=== PATIENT | male | born 1930 | race Caucasian/White ===

== ENCOUNTER 2017-07-28 22:00 | Inpatient (IN) | payer OTHER ==
[~2017-07-28] VITALS: Ht 154.9 cm; Wt 76.5 kg
[~2017-07-28 22:00] MED LIST: ASPIR 8181 M1 PO; Calan SR,Covera HS,I PO; DIOVAN HCT 3201 EAC1 PO; Pradaxa PO; SIMVASTATIN20 MG PO; VERAPAMIL ER180 M1 PO
[2017-07-28 22:42] LABS: BASOPHIL (%) 0.2 % (0-1); EOSINOPHIL (%) 0 % (0-5); HEMATOCRIT 40.9 % (38.0-50.0); HEMOGLOBIN 13.3 G/DL (12.5-16.6); IMMATURE GRANULOCYTE (%) 0.4 % (0.0-0.7); LYMPHOCYTE (%) 4.2 % (15-42); LYMPHOCYTE COUNT 0.4 K/uL (1.0-2.8); MCH 26.6 PG (29.0-34.0); MCHC 32.5 G/DL (30.0-36.0); MCV 81.8 FL (86-99); MONOCYTE (%) 2.2 % (3-12); MONOCYTE COUNT 0.2 K/uL (0-0.8); NEUTROPHIL COUNT 8.4 K/uL (1.8-6.4); PLATELET COUNT 127 K/uL (156-360); RBC DIS.WIDTH-CV 17.1 % (11.8-14.6); RBC DIS.WIDTH-SD 50.1 % (39-53); WHITE BLOOD COUNT 9.1 K/uL (4.1-10.2)
[2017-07-28 22:48] LABS: INTER. NORMALIZED RATIO 2.1
[2017-07-28 23:00] LABS: ALBUMIN 3.3 g/dL (3.2-4.8)
[2017-07-28 23:01] LABS: CHLORIDE 106 mEq/L (99-109); POTASSIUM 3.7 mEq/L (3.7-5.4); SODIUM 140 mEq/L (136-147)
[2017-07-28 23:03] LABS: GLUCOSE 174 mg/dL (70-99); TOTAL PROTEIN 7.2 g/dL (6.4-8.3)
[2017-07-28 23:05] LABS: TOTAL BILIRUBIN 2.1 mg/dL (0.0-1.0); TROP-I INTERPRETATION NEGATIVE; TROPONIN-I 0.07 ng/mL (0.0-0.30)
[2017-07-28 23:06] LABS: ALKALINE PHOSPHATASE 66 IU/L (3-129)
[2017-07-28 23:07] LABS: CREATININE 1.7 mg/dL (0.6-1.3); GFR ESTIMATE (CALCULATED) 41 mL/min/ (58.99-99999)
[2017-07-28 23:08] LABS: AST (GOT) 15 IU/L (2-34); UREA NITROGEN (BUN) 38 mg/dL (9-23)
[2017-07-28 23:09] LABS: ALT (GPT) 12 IU/L (3-49)
[2017-07-29] VITALS (16 sets, daily range): BP systolic 91–141; BP diastolic 61–97
[2017-07-29] MEDS ORDERED: LOPRESSOR100 M1 PO ×2 (05:44)
[2017-07-29] MEDS ORDERED: CHLORTHALIDONE25 MG PO (05:48)
[2017-07-29] MEDS ORDERED: COUMADIN5 MG PO (05:48)
[2017-07-29] MEDS ORDERED: DIOVAN80 MG PO (05:49)
[2017-07-29 06:41] LABS: APPEARANCE SL.HAZY ((CLEAR)); BILIRUBIN NEGATIVE; BLOOD NEGATIVE; COLOR AMBER ((YELLOW)); GLUCOSE (STRIP) 50; KETONES NEGATIVE; LEUKOCYTES NEGATIVE; NITRITE NEGATIVE; PROTEIN (STRIP) >=500; SPECIFIC GRAVITY 1.022 (1.000-1.030); UROBILINOGEN 0.2 MG/DL (0.2-1.0)
[2017-07-29 06:58] LABS: EPITHELIAL CELLS 1+ /HPF; MUCUS 1+ /LPF; RED BLOOD CELLS NONE SEEN /HPF (0-5); WHITE BLOOD CELLS 0-5 /HPF (0-5)
[2017-07-29 06:59] LABS: BACTERIA RARE /HPF; UCUL ADDED? NO
[2017-07-29 14:35] LABS: BASOPHIL (%) 0.3 % (0-1); EOSINOPHIL (%) 0.2 % (0-5); HEMATOCRIT 38.3 % (38.0-50.0); HEMOGLOBIN 12.2 G/DL (12.5-16.6); IMMATURE GRANULOCYTE (%) 0.1 % (0.0-0.7); LYMPHOCYTE (%) 14.4 % (15-42); LYMPHOCYTE COUNT 1.5 K/uL (1.0-2.8); MCH 26.7 PG (29.0-34.0); MCHC 31.9 G/DL (30.0-36.0); MCV 83.8 FL (86-99); MONOCYTE (%) 6.4 % (3-12); MONOCYTE COUNT 0.7 K/uL (0-0.8); NEUTROPHIL (%) 78.6 % (45-76); RBC DIS.WIDTH-CV 17.5 % (11.8-14.6); RBC DIS.WIDTH-SD 53.3 % (39-53); RED BLOOD COUNT 4.57 M/uL (4.00-5.50); WHITE BLOOD COUNT 10.2 K/uL (4.1-10.2)
[2017-07-29 14:49] LABS: ALBUMIN 3.1 G/DL (3.2-4.8); ALKALINE PHOSPHATASE 46 IU/L (3-129); ALT (GPT) 10 IU/L (3-49); AST (GOT) 14 IU/L (2-34); CHLORIDE 104 MEQ/L (99-109); CREATININE 1.7 MG/DL (0.6-1.3); GFR ESTIMATE (CALCULATED) 41 mL/min/ (58.99-99999); POTASSIUM 3.5 MEQ/L (3.7-5.4); SODIUM 140 MEQ/L (136-147); TOTAL BILIRUBIN 1.7 MG/DL (0.0-1.0); TOTAL PROTEIN 6.3 G/DL (6.4-8.3); UREA NITROGEN (BUN) 40 mg/dL (9-23)
[2017-07-29 14:54] LABS: GLUCOSE 119 mg/dL (70-99)
[2017-07-29 15:09] LABS: PLAT.SUFFICIENCY DECREASED; PLATELET COUNT 101 K/uL (156-360)
[2017-07-29 23:14] LABS: BASE EXCESS -3.8 mEq/L (-3 to +3); BICARBONATE 19.5 mEq/L (22-26); CARBOXY HGB 2.6 % (0-5); METHEMOGLOBIN 1.3 % (0-1.5); PCO2 30 mm Hg (35-45); PO2 108 mm Hg (80-100); pH 7.42 (7.35-7.45)
[2017-07-29 23:15] LABS: COMMENTS - BLOOD GASES C+; DEVICE NC; O2 FLOW 2 L/MIN; SITE RR
[2017-07-30] VITALS (7 sets, daily range): BP systolic 109–145; BP diastolic 72–95
[2017-07-30 00:54] LABS: TROP-I INTERPRETATION NEGATIVE; TROPONIN-I 0.15 ng/mL (0.0-0.30)
[2017-07-30 09:22] LABS: BASOPHIL (%) 0.4 % (0-1); EOSINOPHIL (%) 0.8 % (0-5); EOSINOPHIL COUNT 0.1 K/uL (0-0.3); HEMATOCRIT 42.3 % (38.0-50.0); HEMOGLOBIN 13.3 G/DL (12.5-16.6); IMMATURE GRANULOCYTE (%) 0.4 % (0.0-0.7); LYMPHOCYTE (%) 25.2 % (15-42); LYMPHOCYTE COUNT 1.9 K/uL (1.0-2.8); MCH 25.9 PG (29.0-34.0); MCHC 31.4 G/DL (30.0-36.0); MCV 82.5 FL (86-99); MONOCYTE (%) 8.9 % (3-12); MONOCYTE COUNT 0.7 K/uL (0-0.8); NEUTROPHIL (%) 64.3 % (45-76); NEUTROPHIL COUNT 4.8 K/uL (1.8-6.4); PLATELET COUNT 119 K/uL (156-360); RBC DIS.WIDTH-CV 17.2 % (11.8-14.6); RBC DIS.WIDTH-SD 51.9 % (39-53); RED BLOOD COUNT 5.13 M/uL (4.00-5.50); WHITE BLOOD COUNT 7.5 K/uL (4.1-10.2)
[2017-07-30 09:33] LABS: INTER. NORMALIZED RATIO 1.7
[2017-07-30 09:45] LABS: CHLORIDE 103 MEQ/L (99-109); GFR ESTIMATE (CALCULATED) 34 mL/min/ (58.99-99999); GLUCOSE 113 mg/dL (70-99); SODIUM 138 MEQ/L (136-147); UREA NITROGEN (BUN) 45 mg/dL (9-23)
[2017-07-30 09:49] LABS: POTASSIUM 4.3 MEQ/L (3.7-5.4)
[2017-07-31 02:51] VITALS: BP 118/80
[2017-07-31 05:49] LABS: HEMATOCRIT 36.5 % (38.0-50.0); HEMOGLOBIN 11.8 G/DL (12.5-16.6); MCH 26.3 PG (29.0-34.0); MCHC 32.3 G/DL (30.0-36.0); MCV 81.3 FL (86-99); PLATELET COUNT 105 K/uL (156-360); RBC DIS.WIDTH-CV 17.1 % (11.8-14.6); RBC DIS.WIDTH-SD 49.9 % (39-53); RED BLOOD COUNT 4.49 M/uL (4.00-5.50); WHITE BLOOD COUNT 6.2 K/uL (4.1-10.2)
[2017-07-31 06:05] LABS: CHLORIDE 106 MEQ/L (99-109); GFR ESTIMATE (CALCULATED) 34 mL/min/ (58.99-99999); GLUCOSE 91 mg/dL (70-99); POTASSIUM 3.9 MEQ/L (3.7-5.4); SODIUM 140 MEQ/L (136-147); UREA NITROGEN (BUN) 49 mg/dL (9-23)
[2017-07-31 06:24] LABS: INTER. NORMALIZED RATIO 1.7
[2017-07-31 06:26] LABS: PTT 34.9 SEC (25-37)
[2017-07-31 07:24] VITALS: BP 121/78
[2017-07-31] MEDS ORDERED: LOPRESSOR25 MG PO (09:15)
[2017-07-31] MEDS ORDERED: ASPIR-LOW81 MG PO (09:16)
[2017-07-31] MEDS ORDERED: LEVAQUIN250 MG PO (10:15)
== END 2017-07-31 16:34 | disposition home health service (06) | DRG 871 ==
LOC: EME 22:00 → 4WEST 07-29 00:24 → EDOF 07-29 00:24 → 4EAST 07-29 00:24 → CANRESERV 07-29 00:25 → ENRESERV 07-29 00:25 → EDOF 07-29 05:13 → CANRESERV 07-29 05:15 → ENRESERV 07-29 05:15 → 4WEST 07-29 07:27 → ENRESERV 07-29 19:54 → 4EAST 07-29 20:46 → ENPENDDIS 07-31 → 4EAST 07-31 16:34
PROVIDERS: Emergency Medicine; Hospitalist; Internal Medicine
DX: A41.9 Sepsis, unspecified organism (principal); R65.21 Severe sepsis with septic shock; J96.01 Acute respiratory failure with hypoxia; J18.9 Pneumonia, unspecified organism; I13.0 Hypertensive heart and chronic kidney disease with heart failure and stage 1 through stage 4 chronic kidney disease, or unspecified chronic kidney disease; I50.23 Acute on chronic systolic (congestive) heart failure; E87.2 Acidosis; N18.3 Chronic kidney disease, stage 3 (moderate); I42.9 Cardiomyopathy, unspecified; I48.2 Chronic atrial fibrillation; I27.20 Pulmonary hypertension, unspecified; I08.3 Combined rheumatic disorders of mitral, aortic and tricuspid valves; E78.00 Pure hypercholesterolemia, unspecified; E78.5 Hyperlipidemia, unspecified; J38.00 Paralysis of vocal cords and larynx, unspecified; Z66 Do not resuscitate; I47.2 Ventricular tachycardia; Z86.011 Personal history of benign neoplasm of the brain; Z79.01 Long term (current) use of anticoagulants; Z79.82 Long term (current) use of aspirin
CPT/HCPCS: 36600; 71045; 71046; 74230; 78582; 80048; 80053; 81003; 82803; 82948; 83605; 83880; 84484; 85025; 85027; 85610; 85730; 87040; 87070; 87086; 87205; 87449; 87502; 87641; 87651 90; 92611 GN; 93005; 93306; 93970; 94799; 99202; 99281; 99285; A9540; A9567; J0456; J0692; J0696; J1940; J2405; J7030; J7040